=== PATIENT | female | born 1930 | race Caucasian/White ===

== ENCOUNTER → 2016-10-13 | Outpatient (CLI) | payer OTHER ==
[~2016-10-13] MED LIST: AMLO2.5T PO; CHOL1CAP57 PO; CIPR-255 PO; COEN30CA8 PO; CZR50 PO; DICL1GEL12; DICL1GEL28 TOP; DICL1GEL34 TOP; LEVO25TA5 PO; LUTE15CA PO; MAGN250T3 PO; METR500T PO; MULT-506 PO; NRV/5 PO; ONDA4TAB10 SL; TOLT1CAP6 PO; TRAM-10 PO
[2016-10-13 11:02] LABS: BASO % 1.4 %; BASO ABS # 0.07 K/uL (0-0.2); COMPLETE YES; HEMATOCRIT 37.2 % (37-47); IG% 0.2 %; LYMPH % 38.3 %; LYMPH ABS # 1.93 K/uL (1.2-3.4); MEAN CELL VOLUME 91.2 fL (80-100); MEAN CORPUSCULAR HEMOGLOBIN 30.6 pg (25-34); MEAN CORPUSCULAR HGB CONC 33.6 g/dl (32-36); MEAN PLATELET VOLUME 9.4 fL (7.4-10.4); MONO % 8.1 %; PLATELET COUNT 226 K/uL (130-400); RED BLOOD COUNT 4.08 M/uL (4.2-5.4); WHITE BLOOD COUNT 5.04 K/uL (4.8-10.8)
[2016-10-13 11:30] LABS: ESTIMATED AVERAGE GLUCOSE 108 mg/dl; HA1C FLAG Normal (Normal)
[2016-10-13 14:01] LABS: ALT/SGPT 19 U/L (12-78); AST/SGOT 12 U/L (15-37); BLOOD UREA NITROGEN 30 mg/dl (7-18); BUN/CREATININE RATIO 20.3 (10-20); CALCIUM 9.1 mg/dl (8.5-10.1); CARBON DIOXIDE 27 mmol/L (21-32); CHLORIDE 106 mmol/L (98-107); GLUCOSE 80 mg/dl (70-99); SODIUM 142 mmol/L (136-145)
[2016-10-13 14:12] LABS: ALKALINE PHOSPHATASE 53 U/L (45-117); CHOLESTEROL 167 mg/dl (0-200); CHOLESTEROL/HDL RATIO 2.8; HDL CHOLESTEROL 59 mg/dl; LDL CHOLESTEROL CALCULATED 77 mg/dl; TRIGLYCERIDES 154 mg/dl (0-150); VERY LOW DENSITY LIPOPROT CALC 31 mg/dl
== END | disposition home or self-care (01) ==
LOC: C.LABBC 09:03
PROVIDERS: ATTEND Family Medicine
DX: R73.09 Other abnormal glucose (principal)

== ENCOUNTER 2017-04-02 15:04 | Emergency (ER) | payer OTHER ==
[~2017-04-02] VITALS: Ht 149.9 cm; Wt 59.3 kg
[~2017-04-02 15:04] MED LIST changes: -CIPR-255 PO; -COEN30CA8 PO; -DICL1GEL12; -DICL1GEL34 TOP; -METR500T PO; -NRV/5 PO; -ONDA4TAB10 SL; -TOLT1CAP6 PO
[2017-04-02 15:15] VITALS: TEMP 36.7; Ht 149.9 cm; Wt 59.3 kg
--- NOTE | 2017-04-02 17:29 | DIAGNOSTIC IMAGING REPORT ---
SINGLE VIEW CHEST CLINICAL HISTORY: Hypertension. Palpitations. FINDINGS: An AP, portable, upright chest radiograph is obtained. No prior studies are available for comparison at the time of dictation. The examination is degraded by portable technique and patient rotation. The heart is enlarged and there is atherosclerotic calcification of the thoracic aorta. The pulmonary vascular structures noncongested. Additional thickening is noted. No airspace consolidation or large pleural effusion is identified. Left basilar atelectasis is observed. No pneumothorax is seen. The skeletal structures are osteopenic. The bony thorax is grossly intact. Surgical clips are present in the upper abdomen. IMPRESSION: Cardiomegaly with no acute cardiopulmonary abnormality. Electronically signed by: Luke Hamm M.D. 04/02/2017 5:28 PM Dictated Date/Time: 04/02/2017 5:27 PM
--- NOTE | 2017-04-02 17:41 | EMERGENCY ROOM VISIT NOTE ---
History Report prepared by Danish: Timothy Shane Under the Supervision of: Dr. Lynette Harden D.O. First contact with patient: 16:46 Chief Complaint: OTHER COMPLAINT Stated Complaint: BLOOD PRESSURE FLOCTUATING History of Present Illness The patient is an 86 year old female who presents to the Emergency Room with complaints of fluctuating blood pressure for the past week and a half. The patient additionally notes that she has an irregular heart rate, and she can sometimes feel it. The patient additionally states that she was dizzy this morning when she stood up, though she denies any vision changes, numbness, or tingling. 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 The patient additionally states that she has been very thirsty recently, and she drinks cranberry juice a lot. The patient is currently on two different blood pressure medications. Pt denies leg swelling , headache, change in vision, fevers, chest pain, shortness of breath, nausea, vomiting, diarrhea, pain with urination, and melena. Source of History: patient Onset: the past week and a half Position: other (global) Quality: other (low blood pressure) Timing: other (fluctuating) Note: Associated symptoms: Dizziness, thirsty Review of Systems See HPI for pertinent positives & negatives. A total of 10 systems reviewed and were otherwise negative. Past Medical & Surgical Medical Problems: (1) HTN (hypertension) (2) Irregular heart beat (3) Spinal stenosis Social History Smoking Status: Never Smoker Marital Status: Occupation Status: retired Current/Historical Medications Scheduled Cholecalciferol (Vitamin D3), 1,000 INTUNIT PO HS Levothyroxine Sodium (Levothyroxine Sodium), 25 MCG PO QAM Losartan Potassium (Losartan Potassium), 50 MG PO HS Lutein-Zeaxanthin (Lutein), 1 CAP PO QAM Magnesium (Magnesium 250 mg), 250 MG PO HS Multivitamin (Multivitamin), 1 TAB PO HS Scheduled PRN Amlodipine (Norvasc), 2.5 MG PO QAM PRN for IF BP ABOVE 130 Tramadol (Ultram), 50 MG PO BID PRN for Pain Miscellaneous Medications Coenzyme Q10 (Ubidecarenone) (Coq-10) Diclofenac Sodium (Topical) (Voltaren 1% Top Gel) Allergies Coded Allergies: No Known Allergies (Unverified , 12/24/14) Uncoded Allergies: NKA (Allergy, Unknown, 02/04/15) No Known Allergies Physical Exam Vital Signs Date Time Temp Pulse Resp B/P (MAP) Pulse Ox O2 Delivery O2 Flow Rate FiO2 04/02/17 20:06 75 18 177/82 97 04/02/17 18:34 72 18 168/84 94 Room Air 04/02/17 17:20 72 04/02/17 17:00 70 20 152/81 97 Room Air 04/02/17 16:53 69 22 166/96 98 Room Air 04/02/17 15:15 36.7 77 18 124/71 93 Room Air Physical Exam GENERAL: alert, well appearing, well nourished, no distress, non-toxic, hard of hearing EYE EXAM: normal conjunctiva, PERRL and EOM's grossly intact OROPHARYNX: no exudate, no erythema, lips, buccal mucosa, and tongue normal and mucous membranes are moist NECK: supple, no nuchal rigidity, no adenopathy, non-tender LUNGS: Clear to auscultation. Normal chest wall mechanics HEART: no murmurs, S1 normal and S2 normal ABDOMEN: abdomen soft, non-tender, normo-active bowel sounds, no masses, no rebound or guarding. BACK: Back is symmetrical on inspection and there is no deformity, no midline tenderness, no CVA tenderness. SKIN: no rashes and no bruising UPPER EXTREMITIES: upper extremities are grossly normal. LOWER EXTREMITIES: No pitting edema. NEURO EXAM: Normal sensorium, cranial nerves II-XII grossly intact, normal speech, no gross weakness of arms, no gross weakness of legs. Gross sensation intact. Medical Decision & Procedures ER Provider Diagnostic Interpretation: Radiology results have been interpreted by the radiologist and reviewed by me. SINGLE VIEW CHEST CLINICAL HISTORY: Hypertension. Palpitations. FINDINGS: An AP, portable, upright chest radiograph is obtained. No prior studies are available for comparison at the time of dictation. The examination is degraded by portable technique and patient rotation. The heart is enlarged and there is atherosclerotic calcification of the thoracic aorta. The pulmonary vascular structures noncongested. Additional thickening is noted. No airspace consolidation or large pleural effusion is identified. Left basilar atelectasis is observed. No pneumothorax is seen. The skeletal structures are osteopenic. The bony thorax is grossly intact. Surgical clips are present in the upper abdomen. IMPRESSION: Cardiomegaly with no acute cardiopulmonary abnormality. Electronically signed by: Luke Hamm M.D. 04/02/2017 5:28 PM Dictated Date/Time: 04/02/2017 5:27 PM Laboratory Results 04/02/17 17:46 Red Blood Count 3.91, Mean Corpuscular Volume 90.8, Mean Corpuscular Hemoglobin 30.9, Mean Corpuscular Hemoglobin Concent 34.1, Mean Platelet Volume 9.2, Neutrophils (%) (Auto) 58.6, Lymphocytes (%) (Auto) 31.0, Monocytes (%) (Auto) 7.5, Eosinophils (%) (Auto) 2.4, Basophils (%) (Auto) 0.5, Neutrophils # (Auto) 4.47, Lymphocytes # (Auto) 2.36, Monocytes # (Auto) 0.57, Eosinophils # (Auto) 0.18, Basophils # (Auto) 0.04 04/02/17 17:46 Test 04/02/17 17:46 04/02/17 19:05 White Blood Count 7.62 K/uL (4.8-10.8) Red Blood Count 3.91 M/uL (4.2-5.4) Hemoglobin 12.1 g/dL (12.0-16.0) Hematocrit 35.5 % (37-47) Mean Corpuscular Volume 90.8 fL (80-100) Mean Corpuscular Hemoglobin 30.9 pg (25-34) Mean Corpuscular Hemoglobin Concent 34.1 g/dl (32-36) Platelet Count 164 K/uL (130-400) Mean Platelet Volume 9.2 fL (7.4-10.4) Neutrophils (%) (Auto) 58.6 % Lymphocytes (%) (Auto) 31.0 % Monocytes (%) (Auto) 7.5 % Eosinophils (%) (Auto) 2.4 % Basophils (%) (Auto) 0.5 % Neutrophils # (Auto) 4.47 K/uL (1.4-6.5) Lymphocytes # (Auto) 2.36 K/uL (1.2-3.4) Monocytes # (Auto) 0.57 K/uL (0.11-0.59) Eosinophils # (Auto) 0.18 K/uL (0-0.5) Basophils # (Auto) 0.04 K/uL (0-0.2) RDW Standard Deviation 44.6 fL (36.4-46.3) RDW Coefficient of Variation 13.5 % (11.5-14.5) Immature Granulocyte % (Auto) 0.0 % Immature Granulocyte # (Auto) 0.00 K/uL (0.00-0.02) Anion Gap 7.0 mmol/L (3-11) Est Creatinine Clear Calc Drug Dose 17.9 ml/min Estimated GFR () 30.7 Estimated GFR (Non- 26.5 BUN/Creatinine Ratio 18.9 (10-20) Calcium Level 9.3 mg/dl (8.5-10.1) Phosphorus Level 2.6 mg/dl (2.5-4.9) Magnesium Level 2.5 mg/dl (1.8-2.4) Total Bilirubin 0.3 mg/dl (0.2-1) Aspartate Amino Transf (AST/SGOT) 20 U/L (15-37) Alanine Aminotransferase (ALT/SGPT) 23 U/L (12-78) Alkaline Phosphatase 57 U/L (45-117) Troponin I < 0.015 ng/ml (0-0.045) Pro-B-Type Natriuretic Peptide 295 pg/ml (0-1800) Total Protein 7.3 gm/dl (6.4-8.2) Albumin 3.8 gm/dl (3.4-5.0) Globulin 3.5 gm/dl (2.5-4.0) Albumin/Globulin Ratio 1.1 (0.9-2) Thyroid Stimulating Hormone (TSH) 1.840 uIu/ml (0.300-4.500) Urine Color YELLOW Urine Appearance CLEAR (CLEAR) Urine pH 7.0 (4.5-7.5) Urine Specific [place] 1.019 (1.000-1.030) Urine Protein TRACE (NEG) Urine Glucose (UA) NEG (NEG) Urine Ketones NEG (NEG) Urine Occult Blood NEG (NEG) Urine Nitrite NEG (NEG) Urine Bilirubin NEG (NEG) Urine Urobilinogen NEG (NEG) Urine Leukocyte Esterase MODERATE (NEG) Urine WBC (Auto) 1-5 /hpf (0-5) Urine RBC (Auto) 0-4 /hpf (0-4) Urine Hyaline Casts (Auto) 1-5 /lpf (0-5) Urine Epithelial Cells (Auto) >30 /lpf (0-5) Urine Bacteria (Auto) NEG (NEG) Laboratory results per my review. Medications Administered Medications (Trade) Dose Ordered Sig/Barbara Route Start Time Stop Time Status Last Admin Dose Admin Sodium Chloride 500 ml @ 999 mls/hr Q31M STAT IV 04/02/17 19:15 04/02/17 19:45 DC 04/02/17 19:15 999 MLS/HR ECG Indication: other (hypertension) Rate (beats per minute): 72 Rhythm: normal sinus Findings: no acute ischemic change, no ectopy, other (Normal interval, normal axis) ED Course 1709: The patient was evaluated in room B10. A complete history and physical exam was performed. 1911: Pt updated on labs. IVF started and pt given water to drink. BP remains stable, elevated though. Awaiting UA. 1949: Pt updated. No current complaints. Tolerated po, ambulated here with steady gait. Medical Decision Differential Diagnoses include: Anxiety, machine malfunction, noncompliance, dehydration, hypertensive urgency, ACS, electrolyte abnormality, acute renal failure, occult infection. UA suboptimal, doubt UTI/pyelo. BP fluctuating and elevated compared to prior, however, no symptoms or focal neuro deficits. No chest pain. Pt well appearing here despite complaints. Hx of mild renal insufficiency, last Cr 1.5. Tonight likely more elevated from dehydration. Doubt med adr. Doubt occult infectious etiology. Given lack of symptoms despite mild to moderate hypertension, I feel pt can be safely discharged to f/u with PCP. Doubt dissection, pe, acs, infection, cva/tia. Likely mild postural dizziness due to dehydration as seen clinically. Impression Primary Impression: HTN (hypertension) Additional Impressions: Dehydration Anxiety Scribe Attestation The scribe's documentation has been prepared under my direction and personally reviewed by me in its entirety. I confirm that the note above accurately reflects all work, treatment, procedures, and medical decision making performed by me. Departure Information Dispostion Home / Self-Care Referrals Yousif Zarate M.D. (PCP) Patient Instructions My [facility] Additional Instructions Please call and follow-up with your family doctor about your blood pressure. Please drink more water. Please take your medications normally. Please do not check your blood pressure more than once a day. Please have your family doctor recheck your kidney numbers due to your dehydration and mildly abnormal kidney number. If you have any chest pain, palpitations, headaches, vision changes, vomiting, dizziness, swelling of the legs, trouble urinating, or you have any other new or concerning symptoms, please return to the emergency room. Please show your log of numbers to your family doctor. Please discuss with them the increased level of activity you have had recently. Problem Qualifiers Primary Impression: HTN (hypertension) Hypertension type: essential hypertension Qualified Codes: I10 - Essential ( primary) hypertension
[2017-04-02] MEDS ORDERED: COEN30CA8 PO (17:46)
[2017-04-02] MEDS ORDERED: DICL1GEL12 (17:46)
[2017-04-02 18:03] LABS: BASO % 0.5 %; BASO ABS # 0.04 K/uL (0-0.2); COMPLETE YES; EOS % 2.4 %; HEMATOCRIT 35.5 % (37-47); LYMPH ABS # 2.36 K/uL (1.2-3.4); MEAN CELL VOLUME 90.8 fL (80-100); MEAN CORPUSCULAR HEMOGLOBIN 30.9 pg (25-34); MEAN CORPUSCULAR HGB CONC 34.1 g/dl (32-36); MEAN PLATELET VOLUME 9.2 fL (7.4-10.4); MONO % 7.5 %; NEUT % 58.6 %; PLATELET COUNT 164 K/uL (130-400); RED BLOOD COUNT 3.91 M/uL (4.2-5.4); WHITE BLOOD COUNT 7.62 K/uL (4.8-10.8)
[2017-04-02 18:20] LABS: ALT/SGPT 23 U/L (12-78); BLOOD UREA NITROGEN 32 mg/dl (7-18); BUN/CREATININE RATIO 18.9 (10-20); CALCIUM 9.3 mg/dl (8.5-10.1); CARBON DIOXIDE 27 mmol/L (21-32); CHLORIDE 106 mmol/L (98-107); GLUCOSE 97 mg/dl (70-99); MAGNESIUM 2.5 mg/dl (1.8-2.4); POTASSIUM 4.3 mmol/L (3.5-5.1); SODIUM 140 mmol/L (136-145)
[2017-04-02 18:31] LABS: ALB/GLOB RATIO 1.1 (0.9-2); ALKALINE PHOSPHATASE 57 U/L (45-117); AST/SGOT 20 U/L (15-37); PHOSPHORUS 2.6 mg/dl (2.5-4.9)
[2017-04-02] MEDS ORDERED: SODIUM CHLORIDE 0.9% 500ML 500 ML IV STA (19:15)
[2017-04-02 19:24] LABS: URINE APPEARANCE CLEAR (CLEAR); URINE BILIRUBIN NEG (NEG); URINE COLOR YELLOW; URINE EPITHELIAL CELL AUTO >30 /lpf (0-5); URINE NITRITE NEG (NEG); URINE SPECIFIC GRAVITY 1.019 (1.000-1.030); UROBILINOGEN NEG (NEG); ZZUR CULT IF INDIC CLEAN CATCH NO
[2017-04-02 19:26] LABS: MANUAL MICROSCOPIC REQUIRED? NO; REVIEW REQ? NO
[2017-04-02 20:06] VITALS: BP 177/82; PULSE 75; O2SAT 97
== END 2017-04-02 20:04 | disposition home or self-care (01) ==
LOC: C.EDB 15:05
DX: I10 Essential (primary) hypertension (principal); E86.0 Dehydration; F41.9 Anxiety disorder, unspecified; Z79.899 Other long term (current) drug therapy

== ENCOUNTER 2017-04-09 09:36 | Emergency (ER) | payer OTHER ==
[~2017-04-09] VITALS: Ht 149.9 cm; Wt 58.0 kg
[~2017-04-09 09:36] MED LIST changes: +COEN30CA8 PO; +DICL1GEL12; -DICL1GEL28 TOP
[2017-04-09 09:39] VITALS: TEMP 36.6; Ht 149.9 cm; Wt 58.0 kg
[2017-04-09] MEDS ORDERED: SODIUM CHLORIDE 0.9% 1000ML 1,000 ML IV STA (10:03)
[2017-04-09] MEDS ORDERED: MoRPHine SULFATE 2 MG/ML CARP IV STA (10:03)
[2017-04-09] MEDS ORDERED: OPTIRAY 320 IV PRN (10:15)
[2017-04-09] MEDS ORDERED: TOLT1CAP6 PO (10:21)
[2017-04-09] MEDS ORDERED: NRV/5 PO (10:21)
[2017-04-09] MEDS ORDERED: DICL1GEL34 TOP (10:21)
[2017-04-09 10:27] LABS: BASO % 0.3 %; BASO ABS # 0.03 K/uL (0-0.2); COMPLETE YES; EOS % 0.7 %; HEMATOCRIT 35.9 % (37-47); IG% 0.3 %; LYMPH % 10.2 %; MEAN CELL VOLUME 89.1 fL (80-100); MEAN CORPUSCULAR HEMOGLOBIN 30.8 pg (25-34); MEAN CORPUSCULAR HGB CONC 34.5 g/dl (32-36); MEAN PLATELET VOLUME 9.3 fL (7.4-10.4); MONO % 8.7 %; NEUT % 79.8 %; PLATELET COUNT 182 K/uL (130-400); RED BLOOD COUNT 4.03 M/uL (4.2-5.4); WHITE BLOOD COUNT 10.77 K/uL (4.8-10.8)
[2017-04-09 10:45] LABS: BUN/CREATININE RATIO 13.7 (10-20); CALCIUM 9.3 mg/dl (8.5-10.1); CREATININE 1.7 mg/dl (0.60-1.20); POTASSIUM 3.8 mmol/L (3.5-5.1)
[2017-04-09 10:47] LABS: VEN BLD GAS O2 SATURATION 65.3 %; VEN BLOOD GAS BASE EXCESS 2.3 mEq/L
--- NOTE | 2017-04-09 11:02 | EMERGENCY ROOM VISIT NOTE ---
History Report prepared by Danish: Sumi Vee Under the Supervision of: Dr. Yan Santos M.D. First contact with patient: 09:48 Chief Complaint: ABDOMINAL PAIN Stated Complaint: NOT ABLE TO MOVE BOWELS History of Present Illness The patient is a 86 year old white female with a past medical history of high blood pressure who presents to the ED with a cc of sharp abdominal pain which worsens with movement that started yesterday. Negative bowel movements, passing gas, nausea, vomiting, fevers, etoh or tobacco use. The pt also notes something protruding out of her vagina. The pt notes taking senokot with no relief. Source of History: patient Onset: yesterday Position: abdomen Quality: sharp Modifying Factors (Worsening): movement Associated Symptoms: No fevers, No nausea, No vomiting Note: pt denies having any bowel movements or passing gas Review of Systems See HPI for pertinent positives and negatives. A total of ten systems were reviewed and were otherwise negative. Past Medical & Surgical Medical Problems: (1) HTN (hypertension) (2) Irregular heart beat (3) Spinal stenosis Family History no pertinent family history stated Social History Smoking Status: Never Smoker Marital Status: Occupation Status: retired Current/Historical Medications Scheduled Amlodipine Besylate (Amlodipine Besylate), 5 MG PO DAILY Cholecalciferol (Vitamin D3), 1,000 INTUNIT PO HS Ciprofloxacin Hcl (Cipro), 1 TAB PO BID Coenzyme Q10 (Ubidecarenone) (Coq-10), 1 TAB PO DAILY Diclofenac Sodium (Topical) (Diclofenac Sodium), 1 APPLN TOP BID Levothyroxine Sodium (Levothyroxine Sodium), 25 MCG PO QAM Losartan Potassium (Losartan Potassium), 50 MG PO HS Lutein-Zeaxanthin (Lutein), 1 CAP PO QAM Magnesium (Magnesium 250 mg), 250 MG PO HS Metronidazole (Flagyl), 1 TAB PO BID Multivitamin (Multivitamin), 1 TAB PO HS Ondasetron Odt (Zofran Odt), 4 MG SL Q6H Tolterodine Tartrate (Tolterodine Tartrate ER), 2 MG PO BID Scheduled PRN Tramadol (Ultram), 50 MG PO BID PRN for Pain Allergies Coded Allergies: No Known Allergies (Unverified , 12/24/14) Uncoded Allergies: NKA (Allergy, Unknown, 02/04/15) No Known Allergies Physical Exam Vital Signs Date Time Temp Pulse Resp B/P (MAP) Pulse Ox O2 Delivery O2 Flow Rate FiO2 04/09/17 14:38 78 18 171/84 94 Room Air 04/09/17 13:39 80 18 134/58 96 Room Air 04/09/17 13:19 81 04/09/17 13:00 73 18 134/58 94 Room Air 04/09/17 11:05 78 18 159/63 97 Room Air 04/09/17 10:44 79 04/09/17 10:41 79 18 157/77 96 Room Air 04/09/17 09:39 36.6 75 20 107/75 96 Room Air Physical Exam GENERAL: Awake, alert, well-appearing, NAD HENT: Normocephalic, atraumatic. EYES: Normal conjunctiva. Sclera non-icteric. NECK: Supple. No nuchal rigidity. FROM. RESPIRATORY: CTAB, no rhonchi, wheezing, crackles CARDIAC: RRR, no MRG ABDOMEN: Soft, BS+, Diffuse lower abdominal tenderness to light palpitation, no CVA tenderness. MSK: No chest wall TTP, no LE edema GI: Small external hemorrhoids, right labia majora growth that is not red, warm , or fluctuant. No mass protruding from vaginal canal NEURO: GCS 15, CN 2-12 intact, moves all 4s on command SKIN: No rash or jaundice noted. Medical Decision & Procedures ER Provider Diagnostic Interpretation: Radiology results as stated below per my review and radiologist interpretation: ABD/PELVIS WITHOUT FOR STONE FINDINGS: Jewelry Enameler topogram: Surgical clips project over the right upper quadrant and right mid abdomen. Lung bases: Dependent opacities, possibly atelectasis. Multichamber enlargement of the heart. No pericardial or pleural effusion. Liver: Normal morphology. Normal density. Biliary: Intrahepatic and hepatic biliary ductal dilatation allowing for noncontrast technique. Gallbladder surgically absent. Pancreas: Severe parenchymal atrophy. Spleen: Normal. Adrenal glands: Normal. Kidneys and ureters: No nephrolithiasis. Extrarenal pelvises bilaterally. No hydronephrosis. Distal ureters poorly visualized. Proximal to mid ureters normal and nondilated. Bladder: Normal. Pelvic organs: Uterus and ovaries normal. Bowel: Moderate stool burden. Diverticulosis. Suggestion of wall thickening of the sigmoid colon with associated mild pericolonic fat stranding (for example series 3 image 303). Colonic into and anastomosis noted in the mid transverse colon. Ileocolic anastomosis noted in the right mid abdomen. Inspissated material in the distal small bowel suggest delayed transit. No bowel obstruction. Small hiatal hernia. Peritoneal cavity: Trace free fluid in the pelvis. Vasculature: Atherosclerosis of the normal caliber abdominal aorta. Lymph nodes: No gross lymphadenopathy allowing for noncontrast technique. Abdominal wall: Normal. Musculoskeletal: Degenerative changes of the spine. IMPRESSION: 1. Moderate stool burden, which could be compatible with the given history of constipation. 2. Apparent wall thickening and mild pericolonic inflammatory change in the sigmoid colon could suggest stercoral colitis versus diverticulitis. 3. Post surgical changes of the bowel as above. 4. Cardiomegaly. Electronically signed by: Trevor Bishop M.D. Laboratory Results 04/09/17 10:10 Red Blood Count 4.03, Mean Corpuscular Volume 89.1, Mean Corpuscular Hemoglobin 30.8, Mean Corpuscular Hemoglobin Concent 34.5, Mean Platelet Volume 9.3, Neutrophils (%) (Auto) 79.8, Lymphocytes (%) (Auto) 10.2, Monocytes (%) (Auto) 8.7, Eosinophils (%) (Auto) 0.7, Basophils (%) (Auto) 0.3, Neutrophils # (Auto) 8.59, Lymphocytes # (Auto) 1.10, Monocytes # (Auto) 0.94, Eosinophils # (Auto) 0.08, Basophils # (Auto) 0.03 04/09/17 10:10 Test 04/09/17 10:10 04/09/17 10:34 04/09/17 11:04 White Blood Count 10.77 K/uL (4.8-10.8) Red Blood Count 4.03 M/uL (4.2-5.4) Hemoglobin 12.4 g/dL (12.0-16.0) Hematocrit 35.9 % (37-47) Mean Corpuscular Volume 89.1 fL (80-100) Mean Corpuscular Hemoglobin 30.8 pg (25-34) Mean Corpuscular Hemoglobin Concent 34.5 g/dl (32-36) Platelet Count 182 K/uL (130-400) Mean Platelet Volume 9.3 fL (7.4-10.4) Neutrophils (%) (Auto) 79.8 % Lymphocytes (%) (Auto) 10.2 % Monocytes (%) (Auto) 8.7 % Eosinophils (%) (Auto) 0.7 % Basophils (%) (Auto) 0.3 % Neutrophils # (Auto) 8.59 K/uL (1.4-6.5) Lymphocytes # (Auto) 1.10 K/uL (1.2-3.4) Monocytes # (Auto) 0.94 K/uL (0.11-0.59) Eosinophils # (Auto) 0.08 K/uL (0-0.5) Basophils # (Auto) 0.03 K/uL (0-0.2) RDW Standard Deviation 42.9 fL (36.4-46.3) RDW Coefficient of Variation 13.2 % (11.5-14.5) Immature Granulocyte % (Auto) 0.3 % Immature Granulocyte # (Auto) 0.03 K/uL (0.00-0.02) Anion Gap 5.0 mmol/L (3-11) Est Creatinine Clear Calc Drug Dose 17.7 ml/min Estimated GFR () 30.7 Estimated GFR (Non- 26.5 BUN/Creatinine Ratio 13.7 (10-20) Calcium Level 9.3 mg/dl (8.5-10.1) Total Bilirubin 0.7 mg/dl (0.2-1) Direct Bilirubin 0.2 mg/dl (0-0.2) Aspartate Amino Transf (AST/SGOT) 14 U/L (15-37) Alanine Aminotransferase (ALT/SGPT) 19 U/L (12-78) Alkaline Phosphatase 56 U/L (45-117) Total Protein 7.2 gm/dl (6.4-8.2) Albumin 3.5 gm/dl (3.4-5.0) Lipase 52 U/L (73-393) Venous Blood pH 7.45 (7.36-7.41) Venous Blood Partial Pressure CO2 38 mmHg (38.0-50.0) Venous Blood Partial Pressure O2 34 mmHg Venous Blood HCO3 26 mmol/L Venous Blood Oxygen Saturation 65.3 % Venous Blood Base Excess 2.3 mEq/L Urine Color YELLOW Urine Appearance CLEAR (CLEAR) Urine pH 7.5 (4.5-7.5) Urine Specific [place] 1.016 (1.000-1.030) Urine Protein NEG (NEG) Urine Glucose (UA) NEG (NEG) Urine Ketones NEG (NEG) Urine Occult Blood NEG (NEG) Urine Nitrite NEG (NEG) Urine Bilirubin NEG (NEG) Urine Urobilinogen NEG (NEG) Urine Leukocyte Esterase SMALL (NEG) Urine WBC (Auto) 1-5 /hpf (0-5) Urine RBC (Auto) 0-4 /hpf (0-4) Urine Hyaline Casts (Auto) 1-5 /lpf (0-5) Urine Epithelial Cells (Auto) >30 /lpf (0-5) Urine Bacteria (Auto) NEG (NEG) Laboratory results reviewed by me Medications Administered Medications (Trade) Dose Ordered Sig/Barbara Route Start Time Stop Time Status Last Admin Dose Admin Sodium Chloride 1,000 ml @ 125 mls/hr Q8H STAT IV 04/09/17 10:03 04/09/17 15:09 DC 04/09/17 10:32 125 MLS/HR Morphine Sulfate (MoRPHine SULFATE INJ) 2 mg NOW STAT IV 04/09/17 10:03 04/09/17 10:05 DC 04/09/17 10:31 2 MG Miscellaneous Medication (Milk And Molasses Enema) 1 ea ONE STAT VA 04/09/17 12:34 04/09/17 12:36 DC 04/09/17 13:08 1 EA Lactulose (Chronulac Syrup) 30 gm NOW STAT PO 04/09/17 12:34 04/09/17 12:36 DC 04/09/17 12:34 30 GM ED Course 0954: The patient was evaluated in room A9B. A complete history and physical exam was performed. 1140: I reevaluated the patient, her pain has improved. 1413: I reevaluated the patient. Discussed results and discharge instructions: She verbalized understanding and agreement. The patient is ready for discharge. Medical Decision The patient is a 86 year old white female with a past medical history of high blood pressure who presents to the ED with a cc of sharp abdominal pain which worsens with movement that started yesterday. Differential diagnosis: Etiologies such as appendicitis, diverticulitis, PUD, biliary pathology, UTI, pancreatitis, obstruction, mesenteric ischemia, aortic pathology, infections, inflammatory bowel disease, renal colic, as well as others were entertained. Patient was seen and evaluated the bedside. Patient did have mild to moderate diffuse abdominal pain. Patient did have baseline CK disease were non-con scan was obtained. Patient's labs are fairly unremarkable and she had baseline CK D no acute kidney injury. Patient's white count was 10. Patient did have a CTA which showed moderate stool burn with questionable diverticulitis. This and then had an enema that was completed as well as lactulose by mouth. Patient did have a moderate bowel movement with relief. Patient was able to pass a fair amount of gas as well. Patient was feeling improved and tolerated by mouth. Patient was told to take antibiotics for this possible diverticulitis. Patient was also told to continue to augment her bowel regimen at home. All questions were answered and patient was given strict follow-up, discharge, return precautions. Patient family agreed with the plan of care and patient was safely discharged to home. Medication Reconcilliation Current Medication List: was personally reviewed by me Blood Pressure Screening Patient's blood pressure: Elevated blood pressure Blood pressure disposition: Elevated BP felt to be situational Impression Primary Impression: Constipation Additional Impression: Diverticulitis Scribe Attestation The scribe's documentation has been prepared under my direction and personally reviewed by me in its entirety. I confirm that the note above accurately reflects all work, treatment, procedures, and medical decision making performed by me. Departure Information Dispostion Home / Self-Care Prescriptions Ondasetron Odt (ZOFRAN ODT) 4 Mg Tab 4 MG SL Q6H for Nausea, #6 TAB Prov: Yan Santos M.D. 04/09/17 Metronidazole (FLAGYL) 500 Mg Tab 1 TAB PO BID for 7 Days, #14 TAB Prov: Yan Santos M.D. 04/09/17 Ciprofloxacin Hcl (CIPRO) 500 Mg Tab 1 TAB PO BID for 7 Days, #14 TAB Prov: Yan Santos M.D. 04/09/17 Referrals Yousif Zarate M.D. (PCP) Forms HOME CARE DOCUMENTATION FORM, IMPORTANT VISIT INFORMATION Patient Instructions Constipation, My [facility] Additional Instructions Please return to the emergency department if you have worsening or recurrent symptoms not amenable to at-home treatment. Please call for a follow-up appointment with her primary care physician. Please take your medications as prescribed. If you have other concerns and/or complaints please feel free to also call your primary care physician's office or return the ED for further evaluation, management, and treatment. Please take docusate and senna along with metamucil to help with your bowel movements. Please take your antibiotics as prescribed. Please take with food and avoid alcohol. Please consider eating yogurt or taking an antibiotic. Problem Qualifiers Primary Impression: Constipation Constipation type: unspecified constipation type Qualified Codes: K59.00 - Constipation, unspecified Additional Impression: Diverticulitis Diverticulitis site: large intestine Diverticulitis bleeding: without bleeding Diverticulitis complication: without perforation or abscess Qualified Codes: K57.32 - Diverticulitis of large intestine without perforation or abscess without bleeding
[2017-04-09 12:05] LABS: URINE APPEARANCE CLEAR (CLEAR); URINE BILIRUBIN NEG (NEG); URINE COLOR YELLOW; URINE EPITHELIAL CELL AUTO >30 /lpf (0-5); URINE NITRITE NEG (NEG); URINE PH 7.5 (4.5-7.5); URINE SPECIFIC GRAVITY 1.016 (1.000-1.030); UROBILINOGEN NEG (NEG); ZZUR CULT IF INDIC CLEAN CATCH NO
[2017-04-09 12:17] LABS: MANUAL MICROSCOPIC REQUIRED? NO; REVIEW REQ? NO
--- NOTE | 2017-04-09 12:27 | DIAGNOSTIC IMAGING REPORT ---
ABD/PELVIS WITHOUT FOR STONE CLINICAL HISTORY: 86 years-old Female presenting with CKD, constipation x 5d, obstipated 1d. TECHNIQUE: Multidetector CT of the abdomen and pelvis was performed without the use of intravenous contrast. IV contrast: None. A dose lowering technique was used consistent with the principles of ALARA (as low as reasonably achievable). COMPARISON: None. CT DOSE (mGy.cm): The estimated cumulative dose is 524.33 mGy.cm. FINDINGS: [employer] topogram: Surgical clips project over the right upper quadrant and right mid abdomen. Lung bases: Dependent opacities, possibly atelectasis. Multichamber enlargement of the heart. No pericardial or pleural effusion. Liver: Normal morphology. Normal density. Biliary: Intrahepatic and hepatic biliary ductal dilatation allowing for noncontrast technique. Gallbladder surgically absent. Pancreas: Severe parenchymal atrophy. Spleen: Normal. Adrenal glands: Normal. Kidneys and ureters: No nephrolithiasis. Extrarenal pelvises bilaterally. No hydronephrosis. Distal ureters poorly visualized. Proximal to mid ureters normal and nondilated. Bladder: Normal. Pelvic organs: Uterus and ovaries normal. Bowel: Moderate stool burden. Diverticulosis. Suggestion of wall thickening of the sigmoid colon with associated mild pericolonic fat stranding (for example series 3 image 303). Colonic into and anastomosis noted in the mid transverse colon. Ileocolic anastomosis noted in the right mid abdomen. Inspissated material in the distal small bowel suggest delayed transit. No bowel obstruction. Small hiatal hernia. Peritoneal cavity: Trace free fluid in the pelvis. Vasculature: Atherosclerosis of the normal caliber abdominal aorta. Lymph nodes: No gross lymphadenopathy allowing for noncontrast technique. Abdominal wall: Normal. Musculoskeletal: Degenerative changes of the spine. IMPRESSION: 1. Moderate stool burden, which could be compatible with the given history of constipation. 2. Apparent wall thickening and mild pericolonic inflammatory change in the sigmoid colon could suggest stercoral colitis versus diverticulitis. 3. Post surgical changes of the bowel as above. 4. Cardiomegaly. Electronically signed by: Trevor Bishop M.D. 04/09/2017 12:25 PM Dictated Date/Time: 04/09/2017 12:19 PM
[2017-04-09] MEDS ORDERED: LACTULOSE SYRUP 20 GM/30 ML UDC PO STA (12:34)
[2017-04-09] MEDS ORDERED: MILK AND MOLASSES ENEMA PR STA (12:34)
[2017-04-09] MEDS ORDERED: CIPR-255 PO (14:14)
[2017-04-09] MEDS ORDERED: METR500T PO (14:15)
[2017-04-09] MEDS ORDERED: ONDA4TAB10 SL (14:15)
[2017-04-09 14:38] VITALS: BP 171/84; PULSE 78; O2SAT 94
== END 2017-04-09 14:48 | disposition home or self-care (01) ==
LOC: C.EDB 09:37 → C.EDA 14:48
DX: K59.00 Constipation, unspecified (principal); K57.32 Diverticulitis of large intestine without perforation or abscess without bleeding; I10 Essential (primary) hypertension; M48.00 Spinal stenosis, site unspecified; Z79.899 Other long term (current) drug therapy

== ENCOUNTER 2017-11-05 12:11 | Inpatient (IN) | payer OTHER ==
[~2017-11-05] VITALS: Ht 149.9 cm; Wt 61.0 kg
[~2017-11-05 12:11] MED LIST changes: -AMLO2.5T PO; +CIPR-255 PO; -DICL1GEL12; +DICL1GEL34 TOP; +NRV/5 PO; +TOLT1CAP6 PO
--- NOTE | 2017-11-05 12:55 | DIAGNOSTIC IMAGING REPORT ---
CHEST ONE VIEW PORTABLE CLINICAL HISTORY: fever/cough dyspnea COMPARISON STUDY: 04/02/2017 FINDINGS: The bones soft tissues and hemidiaphragms are normal. The cardiomediastinal silhouette is normal. The lungs are clear. The pulmonary vasculature is normal. IMPRESSION: Negative chest. The above report was generated using voice recognition software. It may contain grammatical, syntax or spelling errors. Electronically signed by: Robert Doran M.D. 11/05/2017 12:54 PM Dictated Date/Time: 11/05/2017 12:54 PM
[2017-11-05 12:57] LABS: BASO % 0.5 %; BASO ABS # 0.02 K/uL (0-0.2); EOS % 0.7 %; EOS ABS # 0.03 K/uL (0-0.5); HEMATOCRIT 37.4 % (37-47); HEMOGLOBIN 12.4 g/dL (12.0-16.0); IG# 0.01 K/uL (0.00-0.02); LYMPH % 14.5 %; LYMPH ABS # 0.58 K/uL (1.2-3.4); MEAN CELL VOLUME 90.8 fL (80-100); MEAN CORPUSCULAR HEMOGLOBIN 30.1 pg (25-34); MEAN CORPUSCULAR HGB CONC 33.2 g/dl (32-36); MEAN PLATELET VOLUME 9.3 fL (7.4-10.4); MONO ABS # 0.24 K/uL (0.11-0.59); NEUT % 78.1 %; NEUT ABS # 3.13 K/uL (1.4-6.5); PLATELET COUNT 146 K/uL (130-400); RED CELL DISTRIBUTION WIDTH CV 13.2 % (11.5-14.5); RED CELL DISTRIBUTION WIDTH SD 43.7 fL (36.4-46.3); WHITE BLOOD COUNT 4.01 K/uL (4.8-10.8)
[2017-11-05] MEDS ORDERED: SODIUM CHLORIDE 0.9% 500ML 500 ML IV STA (13:02)
[2017-11-05] MEDS ORDERED: ONDANSETRON INJ 2 MG/ML 2 ML VIAL IV STA (13:02)
[2017-11-05] MEDS ORDERED: CEFTRIAXONE SOD INJ 1 GM ADDVIAL IV STA (13:04)
[2017-11-05] MEDS ORDERED: ACETAMINOPHEN 500 MG TAB PO STA (13:06)
[2017-11-05 13:13] LABS: ALBUMIN 3.4 gm/dl (3.4-5.0); ALT/SGPT 18 U/L (12-78); BLOOD UREA NITROGEN 21 mg/dl (7-18); CARBON DIOXIDE 24 mmol/L (21-32); GLUCOSE 109 mg/dl (70-99); POTASSIUM 3.7 mmol/L (3.5-5.1); SODIUM 135 mmol/L (136-145)
[2017-11-05 13:16] LABS: ALKALINE PHOSPHATASE 58 U/L (45-117); AST/SGOT 14 U/L (15-37); TOTAL PROTEIN 7.4 gm/dl (6.4-8.2)
[2017-11-05 13:38] LABS: INFLUENZA B ANTIGEN Neg for Influ B (NEG)
[2017-11-05] MEDS ORDERED: OSELTAMIVIR PHOSPHATE 75 MG CAP PO STA (14:07)
[2017-11-05] MEDS ORDERED: VYT/1010 PO ×2 (14:10→22:46)
[2017-11-05] MEDS ORDERED: ONDA4TAB10 SL (14:10)
[2017-11-05] MEDS ORDERED: DICL50TA3 PO (14:10)
--- NOTE | 2017-11-05 14:34 | EMERGENCY ROOM VISIT NOTE ---
History Report prepared by Danish: Hero [facility] Under the Supervision of: Dr. Deion Moreno D.O. First contact with patient: 12:37 Chief Complaint: CONGESTION Stated Complaint: DEHYDRATED History of Present Illness The patient is a 87 year old female who presents to the Emergency Room with complaints of worsening generalized weakness beginning a few days ago. She states that she has not eaten anything over the past two days. She also complains of a productive cough beginning yesterday, and generalized weakness. Per daughter, the patient was too weak to walk today prompting her trip to the ED. She feels that the patient is likely dehydrated. The patient denies sorethroat, nausea or vomiting. Source of History: patient, family (daughter) Onset: A few days ago Position: other (generalized) Quality: other (weakness) Timing: worsening Associated Symptoms: + cough (productive, beginning yesterday), + weakness ( generalized weakness), No sorethroat, No nausea, No vomiting Review of Systems See HPI for pertinent positives & negatives. A total of 10 systems reviewed and were otherwise negative. Past Medical & Surgical Medical Problems: (1) HTN (hypertension) (2) Irregular heart beat (3) Spinal stenosis Family History No pertinent family history stated. Social History Smoking Status: Never Smoker Marital Status: Occupation Status: retired Current/Historical Medications Scheduled Amlodipine Besylate (Amlodipine Besylate), 5 MG PO DAILY Cholecalciferol (Vitamin D3), 1,000 INTUNIT PO HS Coenzyme Q10 (Ubidecarenone) (Coq-10), 1 TAB PO DAILY Diclofenac (Voltaren), 50 MG PO Q12 Ezetimibe/Simvastatin (Vytorin 10/10), 1 TAB PO QPM Levothyroxine Sodium (Levothyroxine Sodium), 25 MCG PO QAM Losartan Potassium (Losartan Potassium), 50 MG PO HS Lutein-Zeaxanthin (Lutein), 1 CAP PO QAM Magnesium (Magnesium 250 mg), 250 MG PO HS Multivitamin (Multivitamin), 1 TAB PO HS Tolterodine Tartrate (Tolterodine Tartrate ER), 2 MG PO BID Scheduled PRN Ondasetron Odt (Zofran Odt), 4 MG SL Q6H PRN for Nausea Tramadol (Ultram), 50 MG PO BID PRN for Pain Allergies Coded Allergies: No Known Allergies (Unverified , 3/26/18) Uncoded Allergies: NKA (Allergy, Unknown, 02/04/15) No Known Allergies Physical Exam Vital Signs Date Time Temp Pulse Resp B/P (MAP) Pulse Ox O2 Delivery O2 Flow Rate FiO2 11/05/17 14:16 79 20 129/66 96 Nasal Cannula 2.0 11/05/17 13:30 73 20 136/72 94 Room Air 11/05/17 12:55 68 18 154/70 94 Room Air 11/05/17 12:30 70 11/05/17 12:16 95 Room Air 11/05/17 12:14 38.5 72 18 174/72 94 Room Air Physical Exam CONSTITUTIONAL/VITAL SIGNS: Reviewed / noted above. GENERAL: Non-toxic in appearance. INTEGUMENTARY: Warm, dry, and [place]. HEAD: Normocephalic. EYES: without scleral icterus or trauma. ENT/OROPHARYNX: clear and moist. LYMPHADENOPATHY/NECK: Is supple without lymphadenopathy or meningismus. RESPIRATORY: Lungs clear and equal. CARDIOVASCULAR: Regular rate and rhythm. GI/ABDOMEN: Soft and nontender. No organomegaly or pulsatile mass. No rebound or guarding. Normal bowel sounds. EXTREMITIES: Warm and well perfused. BACK: No CVA tenderness. NEUROLOGICAL: Intact without focal deficits. Generalized weakness. PSYCHIATRIC: normal affect. MUSCULOSKELETAL: Normally developed with good muscle tone. Medical Decision & Procedures ER Provider Diagnostic Interpretation: Radiology results as stated below per my review and radiologist interpretation: CHEST ONE VIEW PORTABLE FINDINGS: The bones soft tissues and hemidiaphragms are normal. The cardiomediastinal silhouette is normal. The lungs are clear. The pulmonary vasculature is normal. IMPRESSION: Negative chest. The above report was generated using voice recognition software. It may contain grammatical, syntax or spelling errors. Electronically signed by: Robert Doran M.D. 11/05/2017 12:54 PM Laboratory Results 11/05/17 12:45 Red Blood Count 4.12, Mean Corpuscular Volume 90.8, Mean Corpuscular Hemoglobin 30.1, Mean Corpuscular Hemoglobin Concent 33.2, Mean Platelet Volume 9.3, Neutrophils (%) (Auto) 78.1, Lymphocytes (%) (Auto) 14.5, Monocytes (%) (Auto) 6.0, Eosinophils (%) (Auto) 0.7, Basophils (%) (Auto) 0.5, Neutrophils # (Auto) 3.13, Lymphocytes # (Auto) 0.58, Monocytes # (Auto) 0.24, Eosinophils # (Auto) 0.03, Basophils # (Auto) 0.02 11/05/17 12:45 Test 11/05/17 12:45 11/05/17 12:46 11/05/17 12:55 11/05/17 13:02 White Blood Count 4.01 K/uL (4.8-10.8) Red Blood Count 4.12 M/uL (4.2-5.4) Hemoglobin 12.4 g/dL (12.0-16.0) Hematocrit 37.4 % (37-47) Mean Corpuscular Volume 90.8 fL (80-100) Mean Corpuscular Hemoglobin 30.1 pg (25-34) Mean Corpuscular Hemoglobin Concent 33.2 g/dl (32-36) Platelet Count 146 K/uL (130-400) Mean Platelet Volume 9.3 fL (7.4-10.4) Neutrophils (%) (Auto) 78.1 % Lymphocytes (%) (Auto) 14.5 % Monocytes (%) (Auto) 6.0 % Eosinophils (%) (Auto) 0.7 % Basophils (%) (Auto) 0.5 % Neutrophils # (Auto) 3.13 K/uL (1.4-6.5) Lymphocytes # (Auto) 0.58 K/uL (1.2-3.4) Monocytes # (Auto) 0.24 K/uL (0.11-0.59) Eosinophils # (Auto) 0.03 K/uL (0-0.5) Basophils # (Auto) 0.02 K/uL (0-0.2) RDW Standard Deviation 43.7 fL (36.4-46.3) RDW Coefficient of Variation 13.2 % (11.5-14.5) Immature Granulocyte % (Auto) 0.2 % Immature Granulocyte # (Auto) 0.01 K/uL (0.00-0.02) Anion Gap 8.0 mmol/L (3-11) Estimated GFR () 35.4 Estimated GFR (Non- 30.6 BUN/Creatinine Ratio 14.1 (10-20) Calcium Level 9.0 mg/dl (8.5-10.1) Total Bilirubin 0.3 mg/dl (0.2-1) Aspartate Amino Transf (AST/SGOT) 14 U/L (15-37) Alanine Aminotransferase (ALT/SGPT) 18 U/L (12-78) Alkaline Phosphatase 58 U/L (45-117) Total Protein 7.4 gm/dl (6.4-8.2) Albumin 3.4 gm/dl (3.4-5.0) Globulin 4.0 gm/dl (2.5-4.0) Albumin/Globulin Ratio 0.9 (0.9-2) Bedside Troponin I < 0.030 ng/ml (0-0.045) Influenza Type A Antigen POS for Influ A (NEG) Influenza Type B Antigen Neg for Influ B (NEG) Bedside Lactic Acid Venous 1.40 mmol/L (0.90-1.70) Test 11/05/17 13:35 Urine Color YELLOW Urine Appearance CLOUDY (CLEAR) Urine pH 7.5 (4.5-7.5) Urine Specific [place] 1.020 (1.000-1.030) Urine Protein NEG (NEG) Urine Glucose (UA) NEG (NEG) Urine Ketones NEG (NEG) Urine Occult Blood NEG (NEG) Urine Nitrite NEG (NEG) Urine Bilirubin NEG (NEG) Urine Urobilinogen NEG (NEG) Urine Leukocyte Esterase NEG (NEG) Urine WBC (Auto) 1-5 /hpf (0-5) Urine RBC (Auto) 0-4 /hpf (0-4) Urine Hyaline Casts (Auto) 1-5 /lpf (0-5) Urine Epithelial Cells (Auto) 10-20 /lpf (0-5) Urine Bacteria (Auto) NEG (NEG) Laboratory results as stated above per my review. Medications Administered Medications (Trade) Dose Ordered Sig/Barbara Route Start Time Stop Time Status Last Admin Dose Admin Sodium Chloride 500 ml @ 999 mls/hr Q31M STAT IV 11/05/17 13:02 11/05/17 13:32 DC 11/05/17 13:02 999 MLS/HR Ondansetron HCl (Zofran Inj) 4 mg NOW STAT IV 11/05/17 13:02 11/05/17 13:03 DC 11/05/17 13:19 4 MG Ceftriaxone Sodium (Rocephin Inj) 1 gm NOW STAT IV 11/05/17 13:04 11/05/17 13:06 DC 11/05/17 13:19 1 GM Acetaminophen (Tylenol Tab) 1,000 mg NOW STAT PO 11/05/17 13:06 11/05/17 13:07 DC 11/05/17 13:21 1,000 MG Oseltamivir Phosphate (Tamiflu Cap) 75 mg NOW STAT PO 11/05/17 14:07 11/05/17 14:08 DC 11/05/17 14:16 75 MG ED Course 1300: Previous medical records were reviewed. The patient was evaluated in room B4B. A complete history and physical examination was performed. 1302: Ordered Zofran Inj 4 mg IV, Sodium Chloride 500 ml @ 999 mls/hr IV. 1304: Ordered Rocephin Inj 1 gm IV. 1306: Ordered Tylenol Tab 1000 mg PO. 1407: Ordered Tamiflu Cap 75 mg PO. 1425: On reevaluation, the patient is resting comfortably. I discussed the results and findings with her. She verbalized agreement of the treatment plan. I spoke with [] of the [] Hospitalist Service. The patient will be evaluated for further management and care. Medical Decision Differential includes acute coronary syndrome, myocardial infarction, CVA, TIA, anemia, infection, pneumonia, UTI, pyelonephritis, poor nutrition, dehydration, electrolyte disturbance, hypoglycemia. This is a 87-year-old female who presents to the ED with a chief complaint of the feet from weakness. She lives alone was unable to walk today. Her family had to bring her in for evaluation. The patient reports decreased oral intake for the past couple of days as well. She has had a cough and congestion. Her laboratory studies were positive for influenza A. A chest x-ray was negative for acute disease. CBC and complete metabolic panel were unremarkable. Troponin was negative. Urine did not show infection. She was given IV fluids and oral Tylenol. She was given IV Zofran for nausea and some IV Rocephin empirically. She was given Tamiflu p.o. Because of the patient's significant weakness, she will be seen for further evaluation by the hospitalist service. Her exam revealed generalized weakness but otherwise was unremarkable. Medication Reconcilliation Current Medication List: was personally reviewed by me Blood Pressure Screening Patient's blood pressure: Elevated blood pressure Blood pressure disposition: Elevated BP felt to be situational Consults Time Called: 1426 Consulting Physician: Dr. Ryan Morris [facility] [place] Hospitalist Returned Call: [phone] Discussed the patient's case. The patient will be evaluated for further treatment and disposition. Impression Primary Impression: Influenza A Scribe Attestation The scribe's documentation has been prepared under my direction and personally reviewed by me in its entirety. I confirm that the note above accurately reflects all work, treatment, procedures, and medical decision making performed by me. Departure Information Dispostion Being Evaluated By Hospitalist Referrals No Doctor, Assigned (PCP) Patient Instructions [facility]
[2017-11-05] MEDS ORDERED: BENZONATATE 100MG CAP PO PRN (15:45)
[2017-11-05] MEDS ORDERED: ACETAMINOPHEN 325 MG TAB PO PRN (15:45)
[2017-11-05] MEDS ORDERED: TRAMADOL HCL 50 MG TAB PO PRN (15:45)
[2017-11-05] MEDS ORDERED: ONDANSETRON INJ 2 MG/ML 2 ML VIAL IV PRN (15:45)
--- NOTE | 2017-11-05 15:48 | History and Physical ---
History & Physical Date & Time of Service: Nov 05, 2017 at 15:41 Chief Complaint: Dehydrated Primary Care Physician: Yousif Zarate M.D. History of Present Illness Source: patient, family This patient is an 87-year-old female with a history of HTN, dyslipidemia, OA, palpitations with frequent PVCs on recent Holter monitor, CKD stage III-IV, overactive bladder, and hypothyroidism, who presents to the ER with cough productive of clear sputum, and generalized weakness 2 days. She had poor p.o. intake and fatigue the last few days. Her daughter reported a fever at home, and she was febrile in the ER to 38.5C. Her rapid influenza antigen swab was positive for influenza A, her chest x-ray was negative for infiltrate. Her UA was negative, troponin was negative. She was found to be acutely hypoxic in the ER, requiring supplemental O2. She is given IV fluids, acetaminophen, Rocephin 1 g IV 1, and Tamiflu. Her lactate was normal at 1.4, and her blood pressure was actually a bit hypertensive. ECG showed normal sinus rhythm with first-degree AV block, nonspecific T-wave change. She will be admitted for acute hypoxic respiratory failure and influenza A with acute bronchitis. Past Medical/Surgical History PMH: HTN Dyslipidemia OA Palpitations with frequent PVCs on recent Holter monitor CKD stage III-IV History of diverticulitis Hypothyroidism Overactive bladder PSH: Partial colon resection Cholecystectomy Appendectomy Family History Noncontributory due to advanced age Social History Smoking Status: Never Smoker Alcohol Use: none Drug Use: none Marital Status: Housing status: lives alone Occupational Status: retired Allergies Coded Allergies: No Known Allergies (Unverified , 11/05/17) Home Medications Scheduled Amlodipine Besylate (Amlodipine Besylate), 5 MG PO DAILY Cholecalciferol (Vitamin D3), 1,000 INTUNIT PO HS Coenzyme Q10 (Ubidecarenone) (Coq-10), 1 TAB PO DAILY Diclofenac (Voltaren), 50 MG PO Q12 Ezetimibe/Simvastatin (Vytorin 10/10), 1 TAB PO QPM Levothyroxine Sodium (Levothyroxine Sodium), 25 MCG PO QAM Losartan Potassium (Losartan Potassium), 50 MG PO HS Lutein-Zeaxanthin (Lutein), 1 CAP PO QAM Magnesium (Magnesium 250 mg), 250 MG PO HS Multivitamin (Multivitamin), 1 TAB PO HS Tolterodine Tartrate (Tolterodine Tartrate ER), 2 MG PO BID Scheduled PRN Ondasetron Odt (Zofran Odt), 4 MG SL Q6H PRN for Nausea Tramadol (Ultram), 50 MG PO BID PRN for Pain Review of Systems Constitutional: + fever, + chills, + weakness, + fatigue Eyes: No problem reported ENT: No problem reported Respiratory: + cough, + sputum, No shortness of breath Cardiovascular: No chest pain Abdomen: No pain, No nausea, No vomiting, No diarrhea, No constipation, No GI bleeding Musculoskeletal: + joint pain (Chronic) Genitourinary - Female: No problem reported Neurologic: No problem reported Psychiatric: No problem reported Endocrine: No problem reported Hematologic / Lymphatic: No problem reported Integumentary: No problem reported Allergic / Immunologic: No problem reported Physical Exam Vital Signs Date Time Temp Pulse Resp B/P (MAP) Pulse Ox O2 Delivery O2 Flow Rate FiO2 11/05/17 15:28 70 20 111/56 96 Room Air 11/05/17 14:16 79 20 129/66 96 Nasal Cannula 2.0 11/05/17 13:30 73 20 136/72 94 Room Air 11/05/17 12:55 68 18 154/70 94 Room Air 11/05/17 12:30 70 11/05/17 12:16 95 Room Air 11/05/17 12:14 38.5 72 18 174/72 94 Room Air General Appearance: WD/WN (But appears ill), no apparent distress Head: normocephalic, atraumatic Eyes: normal inspection, PERRL, EOMI, sclerae normal ENT: normal ENT inspection, hearing grossly normal, TMs normal, pharynx normal Neck: supple, trachea midline Respiratory/Chest: no respiratory distress, no accessory muscle use, + decreased breath sounds (Throughout), + wheezing (Mild expiratory wheezes bilaterally, no rhonchi or crackles) Cardiovascular: regular rate, rhythm, no edema, no gallop, no murmur, normal peripheral pulses Abdomen/GI: normal bowel sounds, non tender, soft, no organomegaly, no pulsatile mass Back: normal inspection Extremities/Musculoskelatal: normal inspection, no calf tenderness, normal capillary refill, no pedal edema, normal range of motion Neurologic/Psych: alert, normal mood/affect, oriented x 3 Skin: normal color, warm/dry, no rash Lymphatic: no adenopathy Diagnostics Laboratory Results Results Past 24 Hours Test 11/05/17 12:45 11/05/17 12:46 11/05/17 12:55 11/05/17 13:02 Range/Units White Blood Count 4.01 4.8-10.8 K/uL Red Blood Count 4.12 4.2-5.4 M/uL Hemoglobin 12.4 12.0-16.0 g/dL Hematocrit 37.4 37-47 % Mean Corpuscular Volume 90.8 80-100 fL Mean Corpuscular Hemoglobin 30.1 25-34 pg Mean Corpuscular Hemoglobin Concent 33.2 32-36 g/dl Platelet Count 146 130-400 K/uL Mean Platelet Volume 9.3 7.4-10.4 fL Neutrophils (%) (Auto) 78.1 % Lymphocytes (%) (Auto) 14.5 % Monocytes (%) (Auto) 6.0 % Eosinophils (%) (Auto) 0.7 % Basophils (%) (Auto) 0.5 % Neutrophils # (Auto) 3.13 1.4-6.5 K/uL Lymphocytes # (Auto) 0.58 1.2-3.4 K/uL Monocytes # (Auto) 0.24 0.11-0.59 K/uL Eosinophils # (Auto) 0.03 0-0.5 K/uL Basophils # (Auto) 0.02 0-0.2 K/uL RDW Standard Deviation 43.7 36.4-46.3 fL RDW Coefficient of Variation 13.2 11.5-14.5 % Immature Granulocyte % (Auto) 0.2 % Immature Granulocyte # (Auto) 0.01 0.00-0.02 K/uL Sodium Level 135 136-145 mmol/L Potassium Level 3.7 3.5-5.1 mmol/L Chloride Level 103 98-107 mmol/L Carbon Dioxide Level 24 21-32 mmol/L Anion Gap 8.0 3-11 mmol/L Blood Urea Nitrogen 21 7-18 mg/dl Creatinine 1.50 0.60-1.20 mg/dl Estimated GFR () 35.4 Estimated GFR (Non- 30.6 BUN/Creatinine Ratio 14.1 10-20 Random Glucose 109 70-99 mg/dl Calcium Level 9.0 8.5-10.1 mg/dl Total Bilirubin 0.3 0.2-1 mg/dl Aspartate Amino Transf (AST/SGOT) 14 15-37 U/L Alanine Aminotransferase (ALT/SGPT) 18 12-78 U/L Alkaline Phosphatase 58 45-117 U/L Total Protein 7.4 6.4-8.2 gm/dl Albumin 3.4 3.4-5.0 gm/dl Globulin 4.0 2.5-4.0 gm/dl Albumin/Globulin Ratio 0.9 0.9-2 Bedside Troponin I < 0.030 0-0.045 ng/ml Influenza Type A Antigen POS for Influ A NEG Influenza Type B Antigen Neg for Influ B NEG Bedside Lactic Acid Venous 1.40 0.90-1.70 mmol/L Test 11/05/17 13:35 Range/Units Urine Color YELLOW Urine Appearance CLOUDY CLEAR Urine pH 7.5 4.5-7.5 Urine Specific [place] 1.020 1.000-1.030 Urine Protein NEG NEG Urine Glucose (UA) NEG NEG Urine Ketones NEG NEG Urine Occult Blood NEG NEG Urine Nitrite NEG NEG Urine Bilirubin NEG NEG Urine Urobilinogen NEG NEG Urine Leukocyte Esterase NEG NEG Urine WBC (Auto) 1-5 0-5 /hpf Urine RBC (Auto) 0-4 0-4 /hpf Urine Hyaline Casts (Auto) 1-5 0-5 /lpf Urine Epithelial Cells (Auto) 10-20 0-5 /lpf Urine Bacteria (Auto) NEG NEG Microbiology Results 11/05/17 Blood Culture, Received Pending 11/05/17 Blood Culture, Received Pending Diagnostic Radiology Chest x-ray images personally reviewed by me and agree with the following report : CHEST ONE VIEW PORTABLE CLINICAL HISTORY: fever/cough dyspnea COMPARISON STUDY: 04/02/2017 FINDINGS: The bones soft tissues and hemidiaphragms are normal. The cardiomediastinal silhouette is normal. The lungs are clear. The pulmonary vasculature is normal. IMPRESSION: Negative chest. EKG ECG with normal sinus rhythm, first-degree AV block, nonspecific ST/T-wave changes Impression Assessment and Plan This patient is an 87-year-old female with a history of HTN, dyslipidemia, OA, palpitations with frequent PVCs on recent Holter monitor, CKD stage III-IV, overactive bladder, and hypothyroidism, who presents to the ER with cough productive of clear sputum, and generalized weakness 2 days. She had poor p.o. intake and fatigue the last few days. Her daughter reported a fever at home, and she was febrile in the ER to 38.5C. Her rapid influenza antigen swab was positive for influenza A, her chest x-ray was negative for infiltrate. Her UA was negative, troponin was negative. She was found to be acutely hypoxic in the ER, requiring supplemental O2. She is given IV fluids, acetaminophen, Rocephin 1 g IV 1, and Tamiflu. Her lactate was normal at 1.4, and her blood pressure was actually a bit hypertensive. ECG showed normal sinus rhythm with first-degree AV block, nonspecific T-wave change. She will be admitted for acute hypoxic respiratory failure and influenza A with acute bronchitis. Influenza A, Acute bronchitis/Acute hypoxic respiratory failure- CXR neg for PNA , with mild wheezing here, no underlying lung issues. -Admit to medical floor -supplemental O2 to keep POx> 92% and wean off as tolerated -Tamiflu renally dosed x 5 days --IVFs for mild dehydration -acetaminophen for fevers -follow BCxs -tessalon pearls for cough -Bronchodilator nebulizers for bronchitis and wheezing Acute renal insufficiency in the setting of CKD stage [id number] here is 1.50 -gas meter installer mildly increased from most recent baseline, but overall not significantly changed from baseline -gentle IVFs -Renally dose medications -Avoid nephrotoxins-would discontinue p.o. diclofenac permanently HTN/dyslipidemia/history of palpitations with frequent PVCs on recent Holter monitor-stable -Continue losartan, amlodipine -Continue simvastatin and ezetimibe every other day as per home dosing overactive bladder-stable -Continue tolterodine hypothyroidism-recent TSH a couple of weeks ago was normal at 1.3 -Continue home dose of levothyroxine OA/chronic pain-on diclofenac and tramadol at home -DC diclofenac as above -Continue tramadol as needed Prophylaxis-heparin SQ Disposition-lives alone at home, with weakness and advanced age, will order PT/ OT consults may need SNF for rehab placement DNR/DNI Resuscitation Status VTE Prophylaxis Will order VTE Prophylaxis: Yes Additional Copies To Yousif Zarate M.D.
[2017-11-05] MEDS: SODIUM CHLORIDE 0.9% 1000ML 1,000 ML IV SCH (16:59)
[2017-11-05] MEDS: ALBUT/IPRATROP 3MG/0.5MG NEB 3 ML VIAL INH SCH ×2 (17:56→19:34)
[2017-11-05 18:34] VITALS: BP 121/53; PULSE 59; TEMP 37.2; O2SAT 95; Ht 149.9 cm; Wt 61.0 kg
[2017-11-05 19:37] VITALS: PULSE 67; O2SAT 88
[2017-11-05] MEDS: MAGNESIUM OXIDE 400 MG TAB PO SCH (20:17)
[2017-11-05] MEDS: MULTIVITAMIN TAB PO SCH (20:17)
[2017-11-05] MEDS: CHOLECALCIFEROL 1000 INTER.UNIT TAB PO SCH (20:17)
[2017-11-05] MEDS: LOSARTAN POTASSIUM 50 MG TAB PO SCH (20:18)
[2017-11-05] MEDS: TOLTERODINE TARTRATE LA 2 MG CAPCR PO SCH (20:18)
[2017-11-05] MEDS: HEPARIN SOD 5000 UNIT/0.5 ML CARP SQ SCH (20:19)
[2017-11-05 20:20] VITALS: BP 130/57; PULSE 83; O2SAT 93
[2017-11-06] VITALS (7 sets, daily range): BP systolic 124–144; BP diastolic 58–73; PULSE 70–77; TEMP 37–38.4; O2SAT 90–96
[2017-11-06] MEDS: LEVOTHYROXINE 25 MCG TAB PO SCH (05:16)
[2017-11-06] MEDS: SODIUM CHLORIDE 0.9% 1000ML 1,000 ML IV SCH ×2 (05:16→20:44)
[2017-11-06 07:03] LABS: BASO % 0.3 %; BASO ABS # 0.01 K/uL (0-0.2); EOS % 0.3 %; EOS ABS # 0.01 K/uL (0-0.5); HEMATOCRIT 30.9 % (37-47); HEMOGLOBIN 10.5 g/dL (12.0-16.0); IG# 0.01 K/uL (0.00-0.02); LYMPH ABS # 0.93 K/uL (1.2-3.4); MEAN CELL VOLUME 90.4 fL (80-100); MEAN CORPUSCULAR HEMOGLOBIN 30.7 pg (25-34); MEAN PLATELET VOLUME 8.5 fL (7.4-10.4); MONO % 11.5 %; MONO ABS # 0.41 K/uL (0.11-0.59); NEUT % 61.6 %; NEUT ABS # 2.21 K/uL (1.4-6.5); PLATELET COUNT 109 K/uL (130-400); RED CELL DISTRIBUTION WIDTH CV 13.4 % (11.5-14.5); RED CELL DISTRIBUTION WIDTH SD 44.1 fL (36.4-46.3); WHITE BLOOD COUNT 3.58 K/uL (4.8-10.8)
[2017-11-06 07:21] LABS: CREATININE 1.36 mg/dl (0.60-1.20); POTASSIUM 3.8 mmol/L (3.5-5.1)
[2017-11-06] MEDS: ALBUT/IPRATROP 3MG/0.5MG NEB 3 ML VIAL INH SCH ×2 (07:47→11:02)
[2017-11-06] MEDS: AMLODIPINE BESYLATE 5 MG TAB PO SCH (08:26)
[2017-11-06] MEDS: TOLTERODINE TARTRATE LA 2 MG CAPCR PO SCH ×2 (08:26→20:45)
[2017-11-06] MEDS: HEPARIN SOD 5000 UNIT/0.5 ML CARP SQ SCH ×2 (08:27→20:48)
[2017-11-06] MEDS ORDERED: COENZYME Q10 PO SCH (09:00)
[2017-11-06] MEDS ORDERED: OSELTAMIVIR PHOSPHATE SUSP 30 MG/5 ML UDP PO SCH (09:00)
[2017-11-06] MEDS ORDERED: NURSING VERBAL MED ORDER ONE (10:30)
--- NOTE | 2017-11-06 15:07 | Progress Note ---
Subjective Date of Service: Nov 06, 2017. Subjective Pt evaluation today including: conversation w/ patient, conversation w/ family , chart review, lab review, review of studies, review of inpatient medication list Feeling a little bit better in general, no more spiking fever, appetite is fair , bowel movement and urination is okay, dry cough, denies chest pain Problem List Medical Problems: (1) Anxiety Status: Acute (2) Constipation Status: Acute (3) Dehydration Status: Acute (4) Diverticulitis Status: Acute (5) Influenza A Status: Acute Review of Systems Constitutional: + weakness, + fatigue, No fever, No chills, No sweats, No weight loss, No problem reported Eyes: No worsening of vision, No eye pain, No redness, No discharge, No diplopia ENT: No hearing loss, No unusual epistaxis, No nasal symptoms, No sore throat, No tinnitus, No dental problems, No trouble swallowing Respiratory: + cough, + sputum, No wheezing, No shortness of breath, No dyspnea on exertion, No dyspnea at rest, No hemoptysis Cardiac: No chest pain, No orthopnea, No PND, No edema, No claudication, No palpitations Abdomen: No pain, No nausea, No vomiting, No diarrhea, No constipation Musculoskeletal: No joint pain, No muscle pain, No swelling, No calf pain Female : No dysuria, No urinary frequency, No hematuria, No incontinence, No abnormal vaginal bleeding, No vaginal discharge Neurologic: No memory loss, No paralysis, No weakness, No numbness/tingling, No vertigo, No balance problems Psychiatric: No depression symptoms, No anhedonism, No anxiety, No insomnia, No substance abuse Heme: No abnormal bleeding/bruising, No clotting problems, No swollen lymph nodes, No night sweats Endo: No fatigue, No excessive thirst, No excessive urination Skin: No rash, No itch, No new/changing skin lesions, No color change, No bleeding Objective Vital Signs Date Time Temp Pulse Resp B/P (MAP) Pulse Ox O2 Delivery O2 Flow Rate FiO2 11/06/17 11:02 77 16 95 Nasal Cannula 2.0 11/06/17 08:30 Nasal Cannula 2.0 11/06/17 07:05 70 16 96 Nasal Cannula 2.0 11/06/17 06:50 37.6 71 20 129/58 (81) 90 Nasal Cannula 2.0 11/06/17 00:40 38.4 73 18 143/67 (92) 92 Room Air 11/06/17 00:00 Room Air 11/05/17 20:20 83 16 130/57 (81) 93 Room Air 11/05/17 19:37 67 18 88 Room Air 11/05/17 18:34 37.2 59 18 121/53 95 Room Air 11/05/17 15:28 37.1 70 20 111/56 96 Room Air Physical Exam General Appearance: WD/WN, no apparent distress Eyes: normal inspection, PERRL, EOMI, sclerae normal ENT: normal ENT inspection, hearing grossly normal, pharynx normal Neck: supple, no adenopathy, thyroid normal, no JVD, no carotid bruits, trachea midline Respiratory/Chest: chest non-tender, normal breath sounds, no respiratory distress, no accessory muscle use, + decreased breath sounds, + wheezing (Only minimal wheezing) Cardiovascular: regular rate, rhythm, no edema, no gallop, no JVD, no murmur Abdomen: normal bowel sounds, non tender, soft, no organomegaly, no pulsatile mass Extremities: normal range of motion, non-tender, normal inspection, no pedal edema, no calf tenderness, normal capillary refill, pelvis stable Neurologic/Psychiatric: neurodiagnostic technologist II-XII nml as tested, no motor/sensory deficits, alert, normal mood/affect, oriented x 3 Skin: normal color, warm/dry, no rash Lymphatic: no adenopathy Laboratory Results Last 24 Hours Test 11/06/17 06:56 White Blood Count 3.58 K/uL Red Blood Count 3.42 M/uL Hemoglobin 10.5 g/dL Hematocrit 30.9 % Mean Corpuscular Volume 90.4 fL Mean Corpuscular Hemoglobin 30.7 pg Mean Corpuscular Hemoglobin Concent 34.0 g/dl Platelet Count 109 K/uL Mean Platelet Volume 8.5 fL Neutrophils (%) (Auto) 61.6 % Lymphocytes (%) (Auto) 26.0 % Monocytes (%) (Auto) 11.5 % Eosinophils (%) (Auto) 0.3 % Basophils (%) (Auto) 0.3 % Neutrophils # (Auto) 2.21 K/uL Lymphocytes # (Auto) 0.93 K/uL Monocytes # (Auto) 0.41 K/uL Eosinophils # (Auto) 0.01 K/uL Basophils # (Auto) 0.01 K/uL RDW Standard Deviation 44.1 fL RDW Coefficient of Variation 13.4 % Immature Granulocyte % (Auto) 0.3 % Immature Granulocyte # (Auto) 0.01 K/uL Sodium Level 138 mmol/L Potassium Level 3.8 mmol/L Chloride Level 107 mmol/L Carbon Dioxide Level 24 mmol/L Anion Gap 7.0 mmol/L Blood Urea Nitrogen 20 mg/dl Creatinine 1.36 mg/dl Est Creatinine Clear Calc Drug Dose 22.3 ml/min Estimated GFR () 39.9 Estimated GFR (Non- 34.4 BUN/Creatinine Ratio 14.5 Random Glucose 96 mg/dl Calcium Level 8.0 mg/dl Magnesium Level 2.2 mg/dl Assessment and Plan 87-year-old female admitted on November 05, 2017 because of Influenza A, Acute bronchitis Influenza A, Acute bronchitis, chest x-ray has no pneumonia Possible acute respiratory distress in the emergency room EKG changes in the emergency room, which is ECG showed normal sinus rhythm with first-degree AV block, nonspecific T-wave change. Stable improving Continue supplemental O2 to keep POx> 92% and wean off as tolerated Continue Tamiflu renally dosed x 5 days Acute kidney injury with creatinine 1.5 in the emergency room, improved to 1.36 today Continue IVFs for mild dehydration, follow BCxs Past medical history of HTN, dyslipidemia, OA, palpitations with frequent PVCs on recent Holter monitor, CKD stage III-IV, overactive bladder, and hypothyroidism, stable continue home medication DVT Prophylaxis-heparin SQ Disposition-lives alone at home, with weakness and advanced age, will follow up PT/OT consults may need SNF for rehab placement Continued [facility] stay due to: multiple IV medications needed Discharge planning: home
[2017-11-06] MEDS: LATANOPROST 0.005% OPB SCH (20:45)
[2017-11-06] MEDS: MAGNESIUM OXIDE 400 MG TAB PO SCH (20:46)
[2017-11-06] MEDS: LOSARTAN POTASSIUM 50 MG TAB PO SCH (20:46)
[2017-11-06] MEDS: CHOLECALCIFEROL 1000 INTER.UNIT TAB PO SCH (20:47)
[2017-11-06] MEDS: MULTIVITAMIN TAB PO SCH (20:47)
[2017-11-06] MEDS ORDERED: LATANOPROST 0.005% OP SOLN 2.5 ML BTL OPB SCH (21:00)
[2017-11-07] VITALS (9 sets, daily range): BP systolic 108–175; BP diastolic 70–86; PULSE 62–71; TEMP 36.5–37; O2SAT 92–98
[2017-11-07] MEDS: LEVOTHYROXINE 25 MCG TAB PO SCH (05:50)
[2017-11-07] MEDS: ALBUT/IPRATROP 3MG/0.5MG NEB 3 ML VIAL INH SCH ×5 (07:05→19:30)
[2017-11-07] MEDS: TOLTERODINE TARTRATE LA 2 MG CAPCR PO SCH ×2 (07:26→22:28)
[2017-11-07] MEDS: AMLODIPINE BESYLATE 5 MG TAB PO SCH (07:26)
[2017-11-07] MEDS: OSELTAMIVIR PHOSPHATE SUSP 30 MG/5 ML UDP PO SCH (07:30)
[2017-11-07] MEDS: SODIUM CHLORIDE 0.9% 1000ML 1,000 ML IV SCH ×2 (07:30→22:29)
[2017-11-07] MEDS: HEPARIN SOD 5000 UNIT/0.5 ML CARP SQ SCH ×2 (07:35→22:28)
[2017-11-07 08:55] LABS: CALCIUM 8.5 mg/dl (8.5-10.1); CREATININE 1.51 mg/dl (0.60-1.20); POTASSIUM 3.7 mmol/L (3.5-5.1)
[2017-11-07] MEDS ORDERED: SODIUM CHLORIDE 0.65% NA SOLN 45 ML (OCEAN) PRN (13:45)
--- NOTE | 2017-11-07 14:32 | Progress Note ---
Subjective Date of Service: Nov 07, 2017. Subjective Pt evaluation today including: conversation w/ patient, conversation w/ family , chart review, lab review, conversation w/ management consultant, review of inpatient medication list Sitting in chair, conversational, report better, still cough nonproductive, pulse sat was 84% in room air, put it back in 2 L/min was 94%, patient does not complain about shortness of breath Denies fever and chills Problem List Medical Problems: (1) Anxiety Status: Acute (2) Constipation Status: Acute (3) Dehydration Status: Acute (4) Diverticulitis Status: Acute (5) Influenza A Status: Acute Review of Systems Constitutional: + weakness, No fever, No chills, No sweats, No weight loss, No fatigue, No problem reported Eyes: No worsening of vision, No eye pain, No redness, No discharge, No diplopia ENT: No hearing loss, No unusual epistaxis, No nasal symptoms, No sore throat, No tinnitus, No dental problems, No trouble swallowing Respiratory: + cough, + wheezing, No sputum, No shortness of breath, No dyspnea on exertion, No dyspnea at rest, No hemoptysis Cardiac: No chest pain, No orthopnea, No PND, No edema, No claudication, No palpitations Abdomen: No pain, No nausea, No vomiting, No diarrhea, No constipation Musculoskeletal: No joint pain, No muscle pain, No swelling, No calf pain Female : No dysuria, No urinary frequency, No hematuria, No incontinence, No abnormal vaginal bleeding, No vaginal discharge Neurologic: No memory loss, No paralysis, No weakness, No numbness/tingling, No vertigo, No balance problems Psychiatric: No depression symptoms, No anhedonism, No anxiety, No insomnia, No substance abuse Heme: No abnormal bleeding/bruising, No clotting problems, No swollen lymph nodes, No night sweats Endo: No fatigue, No excessive thirst, No excessive urination Skin: No rash, No itch, No new/changing skin lesions, No color change, No bleeding Objective Vital Signs Date Time Temp Pulse Resp B/P (MAP) Pulse Ox O2 Delivery O2 Flow Rate FiO2 11/07/17 11:07 68 14 95 Room Air 11/07/17 10:14 93 Room Air 11/07/17 09:02 93 Room Air 11/07/17 08:55 36.5 66 18 148/76 (100) 94 Nasal Cannula 2.0 11/07/17 08:00 Nasal Cannula 2.0 11/07/17 07:08 62 15 98 Nasal Cannula 2.0 11/07/17 00:00 Nasal Cannula 2.0 11/06/17 23:05 37.2 70 22 144/73 (96) 96 Nasal Cannula 2.0 11/06/17 16:08 37.0 74 18 129/73 (91) 94 Nasal Cannula 2.0 11/06/17 16:00 Nasal Cannula 2.0 Physical Exam General Appearance: WD/WN, no apparent distress, + pertinent finding (Frail but conversational) Eyes: normal inspection, PERRL, EOMI, sclerae normal ENT: normal ENT inspection, hearing grossly normal, pharynx normal Neck: supple, no adenopathy, thyroid normal, no JVD, no carotid bruits, trachea midline Respiratory/Chest: chest non-tender, normal breath sounds, no respiratory distress, no accessory muscle use, + decreased breath sounds Cardiovascular: regular rate, rhythm, no edema, no gallop, no JVD, no murmur Abdomen: normal bowel sounds, non tender, soft, no organomegaly, no pulsatile mass Extremities: normal range of motion, non-tender, normal inspection, no pedal edema, no calf tenderness, normal capillary refill, pelvis stable Neurologic/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 tested, no motor/sensory deficits, alert, normal mood/affect, oriented x 3 Skin: normal color, warm/dry, no rash Lymphatic: no adenopathy Laboratory Results Last 24 Hours Test 11/07/17 08:21 Sodium Level 140 mmol/L Potassium Level 3.7 mmol/L Chloride Level 109 mmol/L Carbon Dioxide Level 26 mmol/L Anion Gap 6.0 mmol/L Blood Urea Nitrogen 24 mg/dl Creatinine 1.51 mg/dl Est Creatinine Clear Calc Drug Dose 20.1 ml/min Estimated GFR () 35.1 Estimated GFR (Non- 30.3 BUN/Creatinine Ratio 15.7 Random Glucose 135 mg/dl Calcium Level 8.5 mg/dl Magnesium Level 2.1 mg/dl Assessment and Plan 87-year-old female admitted on November 05, 2017 because of Influenza A, Acute bronchitis Influenza A, Acute bronchitis, chest x-ray has no pneumonia Possible acute respiratory distress in the emergency room EKG changes in the emergency room, which is ECG showed normal sinus rhythm with first-degree AV block, nonspecific T-wave change. Continue stable improving was trying to taper down or taper off nasal cannula, however patient's oxygen level dropped to 84% in room air continue supplemental O2 to keep POx> 92% and wean off as tolerated Two-step exercise for tomorrow and nocturnal possible studies for tonight has ordered to justify home oxygen need Continue Tamiflu renally dosed x 5 days Blood culture negative 2 days Acute kidney injury with creatinine 1.5 in the emergency room, improved to 1.5 today Patient has chronic kidney disease creatinine level was 1.5 which is in her baseline Discussed continue IVFs Past medical history of HTN, dyslipidemia, OA, palpitations with frequent PVCs on recent Holter monitor, CKD stage III-IV, overactive bladder, and hypothyroidism, stable continue home medication DVT Prophylaxis-heparin SQ Disposition: lives alone at home, with weakness and advanced age, PT recommend rehab or jail, home with supervision, I discussed with patient about different options, she seems strongly against to go anywhere such as jail or [facility] Discussed with disease case manager rn, will call to patient's daughter and give her Continued [facility] stay due to: multiple IV medications needed Discharge planning: home
[2017-11-07] MEDS ORDERED: EZETIMIBE 10MG TAB PO SCH (21:00)
[2017-11-07] MEDS ORDERED: SIMVASTATIN 10 MG TAB PO SCH (21:00)
[2017-11-07] MEDS: LOSARTAN POTASSIUM 50 MG TAB PO SCH (22:27)
[2017-11-07] MEDS: LATANOPROST 0.005% OPB SCH (22:27)
[2017-11-07] MEDS: MAGNESIUM OXIDE 400 MG TAB PO SCH (22:28)
[2017-11-07] MEDS: MULTIVITAMIN TAB PO SCH (22:28)
[2017-11-07] MEDS: CHOLECALCIFEROL 1000 INTER.UNIT TAB PO SCH (22:28)
[2017-11-08 00:20] VITALS: BP 188/70
[2017-11-08] MEDS ORDERED: HydrALAZINE 10 MG TAB PO ONE (01:30)
[2017-11-08 04:12] VITALS: BP 169/71
[2017-11-08] MEDS ORDERED: NURSING VERBAL MED ORDER ONE (05:15)
[2017-11-08] MEDS: LEVOTHYROXINE 25 MCG TAB PO SCH (06:20)
[2017-11-08 07:14] VITALS: BP 154/94; PULSE 62; TEMP 36.9; O2SAT 91
[2017-11-08 07:25] VITALS: PULSE 63; O2SAT 94
[2017-11-08] MEDS: ALBUT/IPRATROP 3MG/0.5MG NEB 3 ML VIAL INH SCH ×2 (07:25→11:14)
[2017-11-08] MEDS: TOLTERODINE TARTRATE LA 2 MG CAPCR PO SCH (07:42)
[2017-11-08] MEDS: AMLODIPINE BESYLATE 5 MG TAB PO SCH (07:43)
[2017-11-08] MEDS: OSELTAMIVIR PHOSPHATE SUSP 30 MG/5 ML UDP PO SCH (07:45)
[2017-11-08] MEDS: HEPARIN SOD 5000 UNIT/0.5 ML CARP SQ SCH (07:46)
[2017-11-08 08:29] LABS: CALCIUM 8.8 mg/dl (8.5-10.1); CREATININE 1.31 mg/dl (0.60-1.20); POTASSIUM 3.7 mmol/L (3.5-5.1)
[2017-11-08 11:14] VITALS: PULSE 68; O2SAT 94
[2017-11-08] MEDS ORDERED: XLTOPS OPB (12:08)
[2017-11-08] MEDS ORDERED: TMFUDL30 PO (12:08)
--- NOTE | 2017-11-08 12:08 | Discharge Instructions ---
Discharge Instructions Date of Service Nov 08, 2017. Admission Reason for Admission: Acute Respiratory Failure With Hypoxia,Influenza A Discharge Discharge Diagnosis / Problem: flu Discharge Goals Goal(s): Decrease discomfort, Improve function, Increase independence, Improve disease control, Improve nutritional status, Learn about illness, Diagnostic testing, Therapeutic intervention, Prevent Disease Progression, Specific goals Activity Recommendations Activity Limitations: resume your previous activity Lifting Limitations: none Exercise/Sports Limitations: none . Instructions / Follow-Up Instructions / Follow-Up you have Influenza A, Acute bronchitis, you need to continue Tamiflu renally dosed for total 5 days you have Acute kidney injury , and has chronic kidney disease creatinine level was 1.5 which is in her baseline you can continue incentive spirometry at home Home health care to do PT, OT at home, you need to be on [place] O2 2LPM when you sleep, follow up with pcp if able to taper off in 1-2 month - you need to follow up with your primary care physician in 1 week, - take medication as instructed, never overdose or any misuse, or take with alcohol, because misuse of medicine may cause organ damage or , call your primary care physician if have questions of medicaitons. - call your primary care physician OR go to local emergency room if has any fever/chill, chest pain, shortness of breathing, nausea/vomiting/abdominal pain , facial droop/slurry speech/local weakness, or if has any questions. - fall precaution - diet as instructed Current Hospital Diet Patient's current hospital diet: AHA Diet (Heart Healthy) Discharge Diet Recommended Diet: AHA Diet (Heart Healthy) Pending Studies Studies pending at discharge: no Laboratory Results Hemoglobin A1c Test 10/26/17 11:12 Range/Units Estimated Average Glucose 111 mg/dl Hemoglobin A1c 5.5 4.5-5.6 % Lipid Panel Test 10/26/17 11:12 Range/Units Triglycerides Level 203 H 0-150 mg/dl Cholesterol Level 194 0-200 mg/dl HDL Cholesterol 63 mg/dl Cholesterol/HDL Ratio 3.1 LDL Cholesterol, Calculated 90 mg/dl Medical Emergencies . Who to Call and When: Medical Emergencies: If at any time you feel your situation is an emergency, please call 911 immediately. . Non-Emergent Contact Non-Emergency issues call your: Primary Care Provider . . "Provider Documentation" section prepared by Aj Owens. .
[2017-11-08 12:55] VITALS: BP 154/94; PULSE 68; TEMP 36.9; O2SAT 94
--- NOTE | 2017-11-08 15:44 | Discharge Summary ---
Discharge Summary Date of Service Nov 08, 2017. Discharge Summary Admission Date: Nov 05, 2017 at 15:36 Discharge Date: Nov 08, 2017 Principal Diagnosis: nfluenza A, Acute bronchitis, Problems/Secondary Diagnoses: influenza A, Acute bronchitis, CKD stage III Procedures: No Consultations: No Medication Reconciliation New Medications: Latanoprost (Latanoprost) 37 Drops/2.5 Ml Soln 1 DROPS OPB HS for 1 Day, #1 Oseltamivir Phosphate (Tamiflu) 6 Mg/Ml Karley 30 MG PO DAILY for 3 Days Continued Medications: Amlodipine Besylate (Amlodipine Besylate) 5 Mg Tab 5 MG PO DAILY, #90 Cholecalciferol (Vitamin D3) 1,000 Unit Cap 1000 INTUNIT PO HS Coenzyme Q10 (Ubidecarenone) (Coq-10) 30 Mg Cap 1 TAB PO DAILY Diclofenac (Voltaren) 50 Mg Tabec 50 MG PO Q12, TAB Ezetimibe/Simvastatin (Vytorin 10/10) 1 Tab Tab 1 TAB PO Q2D for 30 Days, TAB Levothyroxine Sodium (Levothyroxine Sodium) 25 Mcg Tab 25 MCG PO QAM Losartan Potassium (Losartan Potassium) 50 Mg Tab 50 MG PO HS Lutein-Zeaxanthin (Lutein) 1 Cap Cap 1 CAP PO QAM Magnesium (Magnesium 250 mg) 1 Tab Tab 250 MG PO HS Multivitamin (Multivitamin) Tab 1 TAB PO HS, TAB Ondasetron Odt (Zofran Odt) 4 Mg Tab 4 MG SL Q6H PRN for Nausea, #6 TAB Tolterodine Tartrate (Tolterodine Tartrate ER) 2 Mg Cap 2 MG PO BID, #180 Tramadol (Ultram) 50 Mg Tab 50 MG PO BID PRN for Pain, TAB Discharge Exam Sitting up in chair, cough is much better, denies chest pain, denies sputum, eating fair, denies constipation Review of Systems: Constitutional: No fever, No chills, No sweats, No weight loss, No weakness , No fatigue, No problem reported Eyes: No worsening of vision, No eye pain, No redness, No discharge, No diplopia, No problem reported ENT: No hearing loss, No unusual epistaxis, No nasal symptoms, No sore throat, No tinnitus, No dental problems, No trouble swallowing, No problem reported Respiratory: + cough Cardiovascular: No chest pain, No orthopnea, No PND, No edema, No claudication, No palpitations, No problem reported Abdomen: No pain, No nausea, No vomiting, No diarrhea, No constipation, No GI bleeding, No problem reported Musculoskeletal: No joint pain, No muscle pain, No swelling, No calf pain, No problem reported Genitourinary - Female: No dysuria, No urinary frequency, No urinary urgency , No urinary incontinence, No urinary retention, No hematuria, No dysmenorrhea, No menorrhagia, No metrorrhagia, No rash, No vaginal bleeding, No vaginal discharge, No vaginal itching, No vulvodynia, No , No problem reported Neurologic: No memory loss, No paralysis, No weakness, No numbness/tingling , No vertigo, No balance problems, No problem reported Endocrine: No fatigue, No excessive thirst, No excessive urination, No problem reported Hematologic / Lymphatic: No abnormal bleeding/bruising, No clotting problems , No swollen lymph nodes, No night sweats, No problem reported Integumentary: No rash, No itch, No new/changing skin lesions, No color change, No bleeding, No problem reported Physical Exam: General Appearance: WD/WN, no apparent distress, + thin, + pertinent finding (Frail and chronically ill looking) Eyes: normal inspection, PERRL ENT: normal ENT inspection, hearing grossly normal Neck: supple, no adenopathy Respiratory/Chest: chest non-tender, no respiratory distress, no accessory muscle use, + decreased breath sounds Cardiovascular: regular rate, rhythm, no edema, no gallop Abdomen / GI: normal bowel sounds, non tender, soft, no organomegaly Extremities: normal inspection, no calf tenderness, normal capillary refill , no pedal edema Neurologic/Psychiatric: crna II-XII nml as tested, no motor/sensory deficits , alert, normal mood/affect, normal reflexes Skin: normal color, warm/dry Hospital Course 87-year-old female admitted on November 05, 2017 because of Influenza A, Acute bronchitis Influenza A, Acute bronchitis, chest x-ray has no pneumonia, stable Possible acute respiratory distress in the emergency room EKG changes in the emergency room, which is ECG showed normal sinus rhythm with first-degree AV block, nonspecific T-wave change. Continue stable improving was trying to taper down or taper off nasal cannula, however patient's oxygen level dropped to 84% in room air continue supplemental O2 to keep POx> 92% and wean off as tolerated Two-step exercise, which was negative, nocturnal possible studies indicate a history required oxygen support while she is asleep, home oxygen is setting up upon discharge Continue Tamiflu renally dosed x 5 days Blood culture negative 2 days Acute kidney injury with creatinine 1.5 in the emergency room, improved to 1.5 today Patient has chronic kidney disease creatinine level was 1.5 which is in her baseline Discussed continue IVFs Past medical history of HTN, dyslipidemia, OA, palpitations with frequent PVCs on recent Holter monitor, CKD stage III-IV, overactive bladder, and hypothyroidism, stable continue home medication DVT Prophylaxis-heparin SQ Disposition: lives alone at home, with weakness and advanced age, PT recommend rehab or longterm, home with supervision, I discussed with patient about different options, she seems strongly against to go anywhere such as longterm or [facility] Discussed with trimming caser, discussed with patient and daughter about the discharge plan again, Instructions / Follow-Up you have Influenza A, Acute bronchitis, you need to continue Tamiflu renally dosed for total 5 days you have Acute kidney injury , and has chronic kidney disease creatinine level was 1.5 which is in her baseline you can continue incentive spirometry at home Home health care to do PT, OT at home, you need to be on [place] O2 2LPM when you sleep, follow up with pcp if able to taper off in 1-2 month - you need to follow up with your primary care physician in 1 week, - take medication as instructed, never overdose or any misuse, or take with alcohol, because misuse of medicine may cause organ damage or , call your primary care physician if have questions of medicaitons. - call your primary care physician OR go to local emergency room if has any fever/chill, chest pain, shortness of breathing, nausea/vomiting/abdominal pain , facial droop/slurry speech/local weakness, or if has any questions. - fall precaution - diet as instructed Total Time Spent: Greater than 30 minutes This includes examination of the patient, discharge planning, medication reconciliation, and communication with other providers. Discharge Instructions Please refer to the electronic Patient Visit Report (Discharge Instructions) for additional information.
--- NOTE | 2017-11-09 13:26 | EDITING REQUIRED CODING QUERY ---
CODING QUERY To promote full compliance with coding requirements relating to patient care, provider participation is requested in all cases of timber inspector uncertainty. Please assist us with the question(s) below: Coding Question(s): The H&P documents Acute Hypoxic Respiratory Failure. The Progress Notes and Discharge Summary document possible Acute Respiratory Distress in the emergency room. Please clarify below, in your clinical opinion. ( ) Possible Acute Hypoxic Respiratory Failure (x ) Possible Acute Respiratory Distress Physician's Response(s): Thank you Geeta Rojo Principal Diagnosis: "_that condition established after study, to be chiefly responsible for occasioning the admission of the patient to the hospital for care." Co-Existing Principal Diagnosis: "_when two or more diagnoses equally meet the criteria for principal diagnosis as determined by the circumstances of admission, diagnostic work up, and/or therapy provided, and the Alphabetic Index, Tabular List, or another coding guideline does not provide sequencing direction, any one of the diagnoses may be sequenced first." "When the physician has documented what appears to be a current diagnosis in the body of the record, but has not included the diagnosis in the final diagnostic statement, the physician should be asked whether the diagnosis should be added." (Source Coding [facility] 2 QTR90. p3-4)
== END 2017-11-08 13:30 | disposition home health service (06) | DRG 194 ==
LOC: C.EDB 12:12 → UNDOADMIN 15:36 → C.MS2W 15:36 → ENRESERV 15:51
PROVIDERS: ADMIT Family Medicine; ATTEND Hospitalist
DX: J10.1 Influenza due to other identified influenza virus with other respiratory manifestations (principal); N17.9 Acute kidney failure, unspecified; J20.9 Acute bronchitis, unspecified; R06.03 Acute respiratory distress; R09.02 Hypoxemia; I12.9 Hypertensive chronic kidney disease with stage 1 through stage 4 chronic kidney disease, or unspecified chronic kidney disease; N18.3 Chronic kidney disease, stage 3 (moderate); E03.9 Hypothyroidism, unspecified; E78.5 Hyperlipidemia, unspecified; M19.90 Unspecified osteoarthritis, unspecified site; N32.81 Overactive bladder; Z51.81 Encounter for therapeutic drug level monitoring; Z79.899 Other long term (current) drug therapy; Z66 Do not resuscitate; Z87.19 Personal history of other diseases of the digestive system